=== PATIENT | male | born 1970 ===

== ENCOUNTER 2016-11-10 10:59 | Outpatient (CLI) | payer BC ==
--- NOTE | 2016-11-10 11:31 | XRay Report ---
LEFT KNEE THREE VIEWS: 11/10/16 10:59:00 CLINICAL: Left knee pain. FINDINGS: No fracture or dislocation. No bone lesion. The joint spaces are normal. No joint effusion. The soft tissues are normal. IMPRESSION: Normal.
== END 2016-11-10 11:00 | disposition home or self-care (01) ==
LOC: SPVIMAG 10:59
PROVIDERS: ATTEND Internal Medicine
DX: M25.562 Pain in left knee (principal)